=== PATIENT | female | born 1955 | race Caucasian/White ===

== ENCOUNTER 2016-12-01 23:16 | Emergency (ER) | payer BC ==
[~2016-12-01] VITALS: Ht 165.1 cm; Wt 95.3 kg
[2016-12-01 23:20] VITALS: BP 155/73
[2016-12-01] MEDS ORDERED: NAPROXEN 500 MG TABLET PO ONE (23:45)
[2016-12-01] MEDS ORDERED: HYDROCODONE/APAP 5/325MG TABLET. PO ONE (23:45)
[2016-12-02] MEDS ORDERED: HYDR-971 PO (00:41)
--- NOTE | 2016-12-02 00:41 | PHYS DOC ---
Past Medical History Past Medical History: Hypertension Past Surgical History: Hysterectomy, Other Additional Past Surgical Histo: bilater foot Alcohol Use: Rarely Drug Use: None Adult General Chief Complaint Chief Complaint: ANKLE PROBLEM HPI HPI Patient is a 61 year old female who presents with moderate right foot and left ankle pain that began after tripping over her cat falling down one step. Patient denies any loss of consciousness. Review of Systems Review of Systems Constitutional: Denies fever or chills [] Musculoskeletal: Right foot and left ankle pain Integument: Denies rash or skin lesions [] Neurologic: Denies headache, focal weakness or sensory changes [] Endocrine: Denies polyuria or polydipsia [] Current Medications Current Medications Current Medications Medications (Trade) Dose Ordered Sig/Stacie Start Time Stop Time Status Last Admin Dose Admin Acetaminophen/ Hydrocodone Bitart (Lortab 5/325) 2 tab 1X ONCE 12/01/16 23:45 12/01/16 23:46 DC 12/02/16 00:00 2 TAB Naproxen (Naprosyn) 500 mg ONCE ONCE 12/01/16 23:45 12/01/16 23:46 DC 12/01/16 23:59 500 MG Allergies Allergies Allergies Coded Allergies Type Severity Reaction Last Updated Verified No Known Drug Allergies 12/01/16 No Physical Exam Physical Exam Constitutional: Well developed, well nourished, no acute distress, non-toxic appearance. [] HENT: Normocephalic, atraumatic, bilateral external ears normal, oropharynx moist, no oral exudates, nose normal. [] Skin: Warm, dry, no erythema, no rash. [] Back: No tenderness, no CVA tenderness. [] Extremities: Left ankle with moderate soft tissue swelling and ecchymosis. Moderate tenderness on palpation of the left lateral ankle. Limited range of motion to the left ankle due to pain. Full range of motion to the left toes. +2 left pedal pulse. Cap refill less than 2 seconds the left toes. Right foot with no obvious deformity. Tenderness on palpation of the right lateral foot. Full range of motion to the right foot. +2 right pedal pulse. Cap refill less than 2 seconds the right lower extremity. Sensation intact to the right lower extremity. Neurologic: Alert and oriented X 3, normal motor function, normal sensory function, no focal deficits noted. [] Psychologic: Affect normal, judgement normal, mood normal. [] Current Patient Data Vital Signs Vital Signs Date Time Temp Pulse Resp B/P Pulse Ox O2 Delivery O2 Flow Rate FiO2 12/02/16 00:00 18 12/01/16 23:20 98.4 98 95 Room Air 98.4 EKG EKG [] Radiology/Procedures Radiology/Procedures [] Course & Med Decision Making Course & Med Decision Making Pertinent Labs and Imaging studies reviewed. (See chart for details) Patient is in the ED with right foot and left ankle pain after falling. Right foot x-ray interpreted by Dr. Corey is positive for fifth metatarsal fracture. Left ankle x-ray interpreted by Dr. Corey is positive for distal fibula fracture. Patient was placed in an orthopedic shoe on the right foot and stirrup splint on the left ankle by the ED RN. Neurovascular exam done by me is normal, cap refill less than 2 seconds bilaterally. Patient was offered admission, she declined. Instructed her to call the orthopedic doctor tomorrow morning and follow-up. Give her prescription for crutches and wheelchair. Dragon Disclaimer Dragon Disclaimer This electronic medical record was generated, in whole or in part, using a voice recognition dictation system. Departure Departure Impression: Primary Impression: Left fibular fracture Additional Impressions: Nondisplaced fracture of fifth right metatarsal bone Fall down steps Disposition: 01 HOME, SELF-CARE Condition: STABLE Referrals: CORY FAJARDO MD (PCP) ADAN RIZZO MD Follow-up with the orthopedic doctor by calling her office first thing tomorrow morning. Patient Instructions: Ankle Fracture, Foot Fracture-Brief Additional Instructions: You were seen for left ankle fracture and right foot fracture. Please call the orthopedic doctor provided first thing tomorrow morning and get a follow-up appointment. Ice and elevate the affected extremities. Do not put weight on either extremity. Scripts Hydrocodone/Apap 5-325 ([place] 5-325 Tablet)1 Each Tablet1-2 Tab PO Q4-6HRS #30 TAB Prov:EDUAR KULKARNI WENCESLAO 12/02/16 Problem Qualifiers Primary Impression: Left fibular fracture Encounter type: initial encounter Fibula location: distal Fracture type: closed Fracture morphology: unspecified fracture morphology Qualified Code: S82.832A - Other fracture of upper and lower end of left fibula, initial encounter for closed fracture Additional Impressions: Nondisplaced fracture of fifth right metatarsal bone Encounter type: initial encounter Fracture type: closed Qualified Code: S92.354A - Nondisplaced fracture of fifth metatarsal bone, right foot, initial encounter for closed fracture Fall down steps Encounter type: initial encounter Qualified Code: W10.8XXA - Fall (on) (from ) other stairs and steps, initial encounter EDUAR KULKARNI APRN Dec 02, 2016 00:41
--- NOTE | 2016-12-02 07:31 | RAD ---
EXAM: 1. Left ankle 3 views. 2. Right foot 3 views. HISTORY: Fall with left ankle and right foot pain. COMPARISON: None. FINDINGS: At the left ankle, there is an oblique fracture of the distal fibular metaphysis. There is one shaft width lateral displacement of the distal fracture fragment. There is a small avulsion fracture at the tip of the medial malleolus. A posterior malleolar fracture is associated with 5 mm proximal displacement and intra-articular surface incongruity. There is mild lateral subluxation and medial tilt of the talus. There is diffuse soft tissue swelling. The talar dome appears intact. There is a moderate plantar calcaneal spur. At the right foot, there is oblique fracture of the fifth metatarsal distally with slight medial displacement. Other joint spaces and alignment are maintained. IMPRESSION: 1. Left posterior malleolar fracture resulting in 5 mm articular surface and agree. 2. Left distal fibular metaphyseal oblique fracture with lateral displacement. 3. Small ligamentous avulsion of the tip of the medial malleolus. 4. Mild disruption of the left ankle mortise. 5. Oblique fracture of the right fifth metatarsal distal metaphysis.
[2016-12-06] MEDS ORDERED: DULO60CA6 PO (16:09)
[2016-12-06] MEDS ORDERED: METO25TA9 PO (16:09)
[2016-12-06] MEDS ORDERED: NORT25CA PO (16:10)
[2016-12-06] MEDS ORDERED: ASPI-482 PO (16:10)
[2016-12-06] MEDS ORDERED: DICL75TA PO (16:10)
== END 2016-12-02 01:10 | disposition home or self-care (01) ==
LOC: ER 23:16
DX: S82.832A Other fracture of upper and lower end of left fibula, initial encounter for closed fracture (principal); S92.354A Nondisplaced fracture of fifth metatarsal bone, right foot, initial encounter for closed fracture; I10 Essential (primary) hypertension; W01.0XXA Fall on same level from slipping, tripping and stumbling without subsequent striking against object, initial encounter; Y93.89 Activity, other specified; Y92.89 Other specified places as the place of occurrence of the external cause; Y99.2 Volunteer activity
CPT/HCPCS: 29515; 73610; 73630; 99284-25

== ENCOUNTER → 2016-12-03 | Outpatient (CLI) | payer BC ==
[2016-12-01 23:20] VITALS: BP 155/73
[~2016-12-03] MED LIST: ASPI-482 PO; DICL75TA PO; DULO60CA6 PO; HYDR-971 PO; METO25TA9 PO; NORT25CA PO
--- NOTE | 2016-12-03 14:54 | RAD ---
EXAM: CT left ankle without contrast. HISTORY: Left ankle fracture. TECHNIQUE: CT of the left ankle was performed without intravenous contrast. COMPARISON: None. FINDINGS: There is an oblique fracture of the lateral malleolus intersect in the mortise 1 cm proximal to the tibial plafond. There is 2 cortical widths lateral displacement of the distal fracture fragment. There is a fracture of the posterior malleolus with proximal migration of the posterior fragment x 3 mm resulting in 3 mm articular surface incongruity. There are small comminuted fragments interposed along the most medial aspect of the fracture line. The fragments measure up to 4 mm. There is a small avulsion fracture at the tip of the medial malleolus. The alignment of the mortise is maintained. There is a small defect along the medial corner of the talar dome measuring <3 mm with a tiny adjacent displaced fragment. There is a small plantar calcaneal spur. There is a joint effusion containing a few additional tiny osseous fragments. Soft tissue swelling is noted. IMPRESSION: 1. Comminuted fracture of the posterior malleolus with 3 mm proximal displacement resulting in articular surface incongruity. Small comminuted fragments interposed along the medial aspect of this fracture line result in an articular surface gap. 2. Mildly laterally displaced oblique fracture of the lateral malleolus. 3. Small avulsion fracture at the tip of the medial malleolus. 4. 3 mm osteochondral lesion along the medial corner of the talar dome with small adjacent displaced fragments. One or more of the following individualized dose reduction techniques were utilized for this examination: 1. Automated exposure control. 2. Adjustment of the mA and/or kV according to patient size. 3. Use of iterative reconstruction technique.
== END | disposition home or self-care (01) ==
LOC: CT 09:24
PROVIDERS: ATTEND Orthopaedic Surgery Sports Medicine
DX: S82.891A Other fracture of right lower leg, initial encounter for closed fracture (principal); X58.XXXA Exposure to other specified factors, initial encounter; Y93.89 Activity, other specified; Y92.89 Other specified places as the place of occurrence of the external cause; Y99.8 Other external cause status
CPT/HCPCS: 73700

== ENCOUNTER 2016-12-08 07:57 | Day surgery (SDC) | payer BC ==
[~2016-12-08] VITALS: Ht 165.1 cm; Wt 95.3 kg
[~2016-12-08 07:57] MED LIST changes: +CEFAZOLIN 1GM IVPB FOR OMNI 50 ML IV PRN; +FENTANYL PF 100 MCG/2 ML VIAL. IV PRN; +HYDROMORPHONE 2 MG/ML VIAL. IV PRN; +IV RINGERS,LACTATED 1000ML 1,000 ML IV SCH; +LIDOCAINE 1% 1 ML SYRINGE. ID PRN; +ONDANSETRON PF 4 MG/2 ML VIAL. IV PRN; +PROCHLORPERAZINE 10 MG/2 ML VIAL. IV PRN
[2016-12-08] MEDS ORDERED: BUPIVACAINE MPF 0.5% 30 ML VIAL. ONE (08:12)
[2016-12-08] MEDS ORDERED: LIDOCAINE 1% PF 30 ML VIAL. ONE (08:12)
[2016-12-08] MEDS ORDERED: MIDAZOLAM HCL 2 MG/2 ML VIAL. ONE (08:46)
[2016-12-08] MEDS ORDERED: DEXAMETHASONE SOD PHOS 20 MG/5 ML VIAL. ONE (08:47)
[2016-12-08] MEDS ORDERED: FENTANYL PF 250 MCG/5 ML VIAL. ONE (08:47)
[2016-12-08] MEDS ORDERED: PROPOFOL 20 ML IV ONE (08:47)
[2016-12-08] MEDS ORDERED: LIDOCAINE 2% 100 MG/5 ML DISP.SYRIN. ONE ×2 (08:47)
[2016-12-08] MEDS ORDERED: ONDANSETRON PF 4 MG/2 ML VIAL. ONE (08:47)
--- NOTE | 2016-12-08 09:07 | DISCH ---
DISCHARGE INSTRUCTIONS Condition on Discharge Condition on Discharge: Stable Activity After Discharge Activity Instructions for Disc: Other, see below Bathing Instructions: Shower-keep dressing dry Weight Bearing Status after Di: Non weight bearing Diet after Discharge Diet after Discharge: Regular Wound Incision Care Wound/Incision Care: Ice to area for comfort, Keep wound/cast CDI, Keep wound elevated, Do not change dressing Contacting the DRColten after DC Call your doctor for: Concerns you may have Follow-Up Follow up with: Ivy in 2 wks JANN HUERTAS II, MD Dec 08, 2016 09:07
--- NOTE | 2016-12-08 09:08 | PDOC ---
BRIEF OPERATIVE NOTE Date: Dec 08, 2016 Pre-Op Diagnosis closed L ankle fracture Post-Op Diagnosis same Procedure Performed ORIF L ankle, placement of syndesmotic screw Surgeon Ivy Silviculturist Kalie Anesthesiologist Therese Anesthesia Type: General, Local Blood Loss 50mL Findings medial widening with ER stress test Complications none JANN HUERTAS II, MD Dec 08, 2016 09:08
[2016-12-08] MEDS ORDERED: SEVOFLURANE 61 TO 120 MINUTES. IH ONE (10:23)
[2016-12-08] MEDS: FENTANYL PF 100 MCG/2 ML VIAL. IV PRN ×2 (10:57→11:10)
[2016-12-08] MEDS ORDERED: HYDROCODONE/APAP 10/325 TABLET. PO PRN ×2 (11:00)
[2016-12-08] MEDS: MORPHINE SULFATE 2 MG/ML DISP.SYRIN. IV PRN ×2 (11:03→11:20)
[2016-12-08 12:21] VITALS: BP 155/88
--- NOTE | 2016-12-08 16:09 | OP ---
DATE OF SURGERY: 12/08/2016 SURGEON: Duglas Huertas MD [employer] ENGINEER: Diana Jade. ANESTHESIA: General plus local. COMPLICATIONS: None. TOURNIQUET TIME: 65 minutes. ESTIMATED BLOOD LOSS: 50 mL. COMPONENTS INSERTED: [employer] distal fibula locking plate with a 3.5 mm single syndesmotic screw. REASON FOR PROCEDURE: The patient is a very pleasant 61-year-old female who lost her footing and tripped while at home and suffered a closed left distal fibula fracture with posterior malleolar involvement as well. INDICATIONS: I had a discussion of risks, benefits, and alternatives given her medial widening and fracture to proceeding with the above surgery, and she elected to proceed. I did also obtain a preoperative CAT scan for planning and to assess the posterior malleolar piece. DESCRIPTION OF PROCEDURE: The patient was greeted in the preoperative area by myself. Correct extremity was marked and verified. She was taken to the operative suite, and antibiotics were started en route. Once in the OR, she was transferred gently supine to the OR table. She had successful induction of general anesthesia. All pressure points were padded. She was secured to the bed. After we placed a large bump under her left hip, we then placed a nonsterile tourniquet to her left thigh and proceeded to prep and drape the left lower extremity in our usual sterile fashion which includes a chlorhexidine pre-scrub. After this, we conducted a standard preoperative timeout, and then I exsanguinated the extremity with an Esmarch, and tourniquet was insufflated to 250 mmHg. I then palpated and marked her distal fibular surface anatomy and made a straight skin incision laterally over this. I dissected subcutaneous tissue with electrocautery and Metzenbaum and noted a large amount of hematoma as well as soft tissue stripping at her anterior distal fibula. I was able to explore and evacuate hematoma digitally. I identified the fracture site and used a combination of a small rongeur, dental pick, curette, and metal tip sucker to debride the fracture site to expose the bony ends fully. After this, I performed a reduction and noted that when I inverted her ankle, the distal fibula fracture peacefully, did not move at all. I then used a combination of dental pick and sequential vplrx-lw-dalhw reduction maneuvers to becerra in the fracture fragment better. Her bone was quite soft, and I had difficulty securing the ojxfb-jq-mpknsq well and easily perforated the cortex. I opted not to place a leg screw through this fracture because the anterior portion of the cortical bone was quite narrow, and I did not think it would accommodate even a 2.7 screw. With the reduction accomplished and verified under biplanar fluoroscopy, I then sized the plate. I then placed the plate against bone and ensured that my reduction did not shift and then secured the plate above and below the fracture site with nonlocking screws and then filled with locking screws distal to the fracture site. I then placed nonlocking screws proximal to the fracture site as well to fill the holes. After this, I then brought in C-arm and performed an external rotation stress test and noted increased medial clear space widening with this. Therefore, I made a stab incision over medial malleolus region, bluntly dissected with hemostat down to the distal tibia and used a large periarticular reduction clamp from the plate to the medial distal tibia to reduce the syndesmosis. With the clamp in place, I repeated the external rotation stress test and noted no increase in medial clear space widening. Therefore, I placed a single 3.5 mm screw across four cortices. Then, I released the reduction forceps. I then took my final images and was happy with the fracture reduction and hardware position. I did inspect the posterior malleolus piece and felt that its size did not warrant fixation. After this, I thoroughly irrigated out the operative field and proceeded to close the deep layers with combination of simple and vjkonl-zg-ygubq 0 Vicryl. Inverted interrupted 2-0 was used for subcutaneous tissue and 2-0 nylon in mattress was used for the skin including the medial stab incision. We then cleansed and dried the leg, placed sterile dressing and a well-padded AO splint. After this, tourniquet was let down. The patient tolerated surgery well. No complications. Prior to completion of wound closure, all counts were reported correct x 2. At the conclusion of surgery, she was awakened and transferred gently supine to the recovery room cart and taken to PACU in stable and extubated condition. Postop plan is to discharge her home. She will be nonweightbearing. I will see her back in 2 weeks, sooner should problems arise. DUGLAS HUERTAS MD DR: Leann JOB#: [id number] / [id number]
== END 2016-12-08 12:28 | disposition home or self-care (01) ==
LOC: SURG 07:57 → MERGE 12:00 → SURG 12:28
PROVIDERS: ATTEND Orthopaedic Surgery Sports Medicine
DX: S82.832A Other fracture of upper and lower end of left fibula, initial encounter for closed fracture (principal); M19.90 Unspecified osteoarthritis, unspecified site; I10 Essential (primary) hypertension; K21.9 Gastro-esophageal reflux disease without esophagitis; X58.XXXA Exposure to other specified factors, initial encounter; Y93.89 Activity, other specified; Y92.009 Unspecified place in unspecified non-institutional (private) residence as the place of occurrence of the external cause; Y99.9 Unspecified external cause status; Z90.710 Acquired absence of both cervix and uterus; Z90.49 Acquired absence of other specified parts of digestive tract
CPT/HCPCS: 27792; 76000; A4215; C1713; J0690; J1100; J1170; J2250; J2270; J2405; J2704; J3010; J3490; J7120

== ENCOUNTER → 2017-03-04 | Day surgery (SDC) | payer BC ==
[~2017-03-04] MED LIST changes: -CEFAZOLIN 1GM IVPB FOR OMNI 50 ML IV PRN; -FENTANYL PF 100 MCG/2 ML VIAL. IV PRN; -HYDROMORPHONE 2 MG/ML VIAL. IV PRN; -LIDOCAINE 1% 1 ML SYRINGE. ID PRN; +LIDOCAINE 2% PF Vial for OR 5 ML VIAL. ONE; -ONDANSETRON PF 4 MG/2 ML VIAL. IV PRN; -PROCHLORPERAZINE 10 MG/2 ML VIAL. IV PRN; +PROPOFOL 20 ML IV ONE
[2017-03-04 13:28] VITALS: BP 126/86
== END | disposition home or self-care (01) ==
LOC: ENDOS 10:52
PROVIDERS: ATTEND Surgery
DX: Z12.11 Encounter for screening for malignant neoplasm of colon (principal); K21.9 Gastro-esophageal reflux disease without esophagitis; E66.9 Obesity, unspecified; I10 Essential (primary) hypertension; M19.90 Unspecified osteoarthritis, unspecified site; Z90.710 Acquired absence of both cervix and uterus; Z87.39 Personal history of other diseases of the musculoskeletal system and connective tissue
CPT/HCPCS: 45378; J2704

== ENCOUNTER 2017-03-30 08:57 | Day surgery (SDC) | payer BC ==
[~2017-03-30 08:57] MED LIST changes: +BUPIVAC MPF-EPI 0.5%-1:200000 30 ML VIAL. ONE; +BUPIVACAINE MPF 0.5% 30 ML VIAL. ONE; +HYDROmorphone 2 MG/ML VIAL IV PRN; +LIDOCAINE 1% 1 ML SYRINGE. ID PRN; +LIDOCAINE 1% PF 30 ML VIAL. ONE; -LIDOCAINE 2% PF Vial for OR 5 ML VIAL. ONE; +MORPHINE SULFATE 2 MG/ML DISP.SYRIN. IV PRN; +ONDANSETRON PF 4 MG/2 ML VIAL. IV PRN; +PROCHLORPERAZINE 10 MG/2 ML VIAL. IV PRN; -PROPOFOL 20 ML IV ONE; +fentaNYL PF VIAL 100 MCG/2 ML VIAL IV PRN
--- NOTE | 2017-03-30 09:30 | DISCH ---
DISCHARGE INSTRUCTIONS Condition on Discharge Condition on Discharge: Stable Activity After Discharge Activity Instructions for Disc: Activity as tolerated Bathing Instructions: Shower-keep dressing dry Weight Bearing Status after Di: As tolerated Diet after Discharge Diet after Discharge: Regular Wound Incision Care Wound/Incision Care: Ice to area for comfort, Keep wound/cast CDI, Keep wound elevated, Change dressing Contacting the DRColten after DC Call your doctor for: Concerns you may have Follow-Up Follow up with: Ivy in 2wks Follow Up With: Higinio in 2 wks JANN HUERTAS II, MD Mar 30, 2017 09:30
--- NOTE | 2017-03-30 09:32 | PDOC ---
BRIEF OPERATIVE NOTE Date: Mar 30, 2017 Pre-Op Diagnosis Ankle syndesmotic injury and distal fibula fx Post-Op Diagnosis same Procedure Performed removal of syndesmotic screw Surgeon Ivy Anesthesia Type: General Complications none JANN HUERTAS II, MD Mar 30, 2017 09:32
[2017-03-30] MEDS ORDERED: MIDAZOLAM HCL/PF 2 MG/2 ML VIAL. ONE (09:34)
[2017-03-30] MEDS ORDERED: DESFLURANE 61 TO 120 MINUTES IH ONE (09:34)
[2017-03-30] MEDS ORDERED: ONDANSETRON PF 4 MG/2 ML VIAL. ONE (09:35)
[2017-03-30] MEDS ORDERED: LIDOCAINE 2% PF Vial for OR 5 ML VIAL. ONE (09:35)
[2017-03-30] MEDS ORDERED: fentaNYL PF VIAL 100 MCG/2 ML VIAL ONE (09:35)
[2017-03-30] MEDS ORDERED: PROPOFOL 20 ML IV ONE (09:35)
[2017-03-30] MEDS ORDERED: DEXAMETHASONE SOD PHOS 20 MG/5 ML VIAL. ONE (09:35)
--- NOTE | 2017-03-30 11:19 | PDOC ---
BRIEF OPERATIVE NOTE Pre-Op Diagnosis #[id number] right and left leg lesions excision of lesions linda chambers gen ebl 10 ivf 850 [facility] CONRAD Whitfield MD Mar 30, 2017 11:19
[2017-03-30] MEDS ORDERED: OXYC-323 PO (11:46)
[2017-03-30 12:14] VITALS: BP 156/72
--- NOTE | 2017-03-30 14:43 | OP ---
DATE OF SURGERY: 03/30/2017 PREOPERATIVE DIAGNOSES: 1. Right leg lesion. 2. Left leg lesion. POSTOPERATIVE DIAGNOSES: 1. Right leg lesion. 2. Left leg lesion. PROCEDURE: 1. Excision of 1 cm right leg subcutaneous nodule. 2. Excision of 1 cm left leg skin lesion. 3. Layered wound closure, left leg. SURGEON: Conrad Salcedo M.D. ANESTHESIA: General. ESTIMATED BLOOD LOSS: 10 mL. IV FLUIDS: 850 mL. INDICATIONS: The patient is a 61-year-old female who presented with the above-described leg lesion that she would like to have removed. DESCRIPTION OF PROCEDURE: After informed consent was obtained, the patient was taken to the operating room and placed in supine position. After adequate induction of general anesthesia, she was prepped and draped in usual sterile fashion. A skin incision was made over the right leg lesion with a scalpel and the subcutaneous tissue divided sharply. The lesion was delivered into the field with gentle pressure, which measured 1 cm. It appeared to have a yellowish brownish hue, possibly consistent with an old hematoma. The wound had some bleeding that was controlled with 3-0 Vicryl suture. The wound was then closed in layers with the deep layer approximated with 3-0 Vicryl. Skin was closed with 4-0 Monocryl in subcuticular fashion. Local was injected. Pressure was held and the area was hemostatic. The left leg lesion was then addressed and then an elliptical incision was made around the left leg skin lesion and extended into the subcutaneous fat with cautery. The skin lesion was excised with a short stitch distally and a long stitch proximal. The wound was then closed in layers. There was hemostatic. The deep layer was closed with 3-0 Vicryl in interrupted fashion and then the skin was closed with a 4-0 Prolene in a simple running fashion. Local was injected. Sterile dressings were placed. She tolerated procedure well. There were no apparent complications. She remained in the operating room under a general anesthetic where Dr. Haynes was to begin his portion of her surgery. CONRAD SALCEDO MD DR: JONAS/tammy JOB#: [id number] / [id number] CORY Calhoun MD MTDD
--- NOTE | 2017-03-30 15:39 | OP ---
DATE OF SURGERY: 03/30/2017 PREOPERATIVE DIAGNOSIS: Left ankle syndesmotic injury with hardware and distal fibular fracture. POSTOPERATIVE DIAGNOSIS: Left ankle syndesmotic injury with hardware and distal fibular fracture. PROCEDURE PERFORMED: Removal of syndesmotic screw. COMPLICATIONS: None. REASON FOR PROCEDURE: The patient is a very pleasant 61-year-old who underwent ORIF of left ankle fracture dislocation and syndesmotic injury with myself several weeks ago. For full details, please see my outpatient notes. We had a discussion of risks, benefits, alternatives to proceeding with screw removal today. The surgery was done in conjunction with Dr. Hooker's excision of 2 lower extremity leg masses. For details, please see her documentation. DESCRIPTION OF PROCEDURE: I greeted the patient in the preoperative area before she was taken back to the operative suite and marked my surgical site. The patient was then taken back to the operative suite and Dr. Hooker performed her portion of the procedure. Please see her documentation for that. After she had finished, I entered the room, and the patient was already prepped and draped and under general anesthesia. I brought in C-arm to localize the syndesmotic screw and then made approximately a 1.5 cm incision through her prior incision and used a hemostat to dissect down to the level of the plate bluntly. I then used a [place] elevator to remove adherent fibrotic tissue over the screw head. I used C-arm to make sure I was removing the correct screw and then used a screwdriver to remove the screw without complication. I took an image to confirm this. I then performed an external rotation stress test, which demonstrated no talar shift or widening of her syndesmosis. I then irrigated out the small stab incision and then closed the skin with simple interrupted 2-0 nylon in a mattress fashion. The area was then cleansed and dried and sterile dressing was applied followed by cast padding and Geraldo wrap. She was then awakened from anesthesia. She tolerated the procedures well. There were no complications. Blood loss for my portion was 5 mL. At the conclusion of surgery, she was awakened and extubated and transferred gently supine to the recovery room cart and taken to PACU in stable and extubated condition. From my standpoint, she can weightbear as tolerated. I will see her back in 2 weeks, sooner should problems arise. JANN HUERTAS MD DR: BASILIO/tammy JOB#: [id number] / [id number]
--- NOTE | 2017-04-01 18:43 | PATHOLOGY ---
PATHOLOGY REPORT * * * * * * * * FINAL DIAGNOSIS: A. Skin, right leg lesion: - Dermatofibroma hemosiderotic variant. - There is no evidence of malignancy. - See comment. B. Skin, left leg lesion: - Lichenoid keratosis. - There is no evidence of malignancy. - See comment. COMMENT: A and B. This case is also reviewed by the dermatopathologist, Dr. Daniela Silva. (SHA:[facility]; d/t: 04/01/2017) REPORT ELECTRONICALLY SIGNED BY: Gamaliel Mares M.D. DATE/TIME: 04/01/2017 18:42 * * * * * * * * GROSS PATHOLOGY: A. The specimen is received in formalin labeled "Augie James right leg lesion". Received is a segment of friable red-brown possible soft tissue measuring 1.1 x 0.9 x 0.7 cm in greatest dimensions. The surgical margin is not discernible grossly. The specimen is submitted entirely in cassette A1. B. Received in formalin labeled "Augie James left leg lesion," is a 1.6 x 1.2 x 0.3 cm ellipse of skin oriented with a short suture placed at one tip designating this as the distal aspect, which will further be designated as the 6:00 margin, and a long suture placed at the opposite tip designating this as the proximal margin, which will further be designated as the 12:00 margin. The specimen is inked as follows: 12 to 3:00-yellow, 3 to 6:00-blue and 6 to 12:00-black. The epidermal surface displays a well-circumscribed, irregular in contour, partially crusted and pale layne to light layne lesion which measures 0.6 x 0.5 cm. The specimen is sectioned into six pieces and entirely submitted in cassettes B1 and B2, with the 12 and 6:00 aspects placed in cassette B2. ([facility]; 03/31/2017) INITIAL CPT CODE(S): A; 37074 B; 73846 Professional services performed by [facility] at [address] [address] Technical services performed by [facility] at [address] [place] [address], [address], [place] [address]. SPECIMEN(S) RECEIVED: A.Right leg lesion B.Left leg lesion CLINICAL HISTORY: Bilateral leg lesions PATIENT: AUGIE JAMES /AGE: 1210/02/1955 (Age: 61) PATIENT #: [id number] ALT CASE #: SPECIMEN COLLECTION DATE: 03/30/2017 SPECIMEN RECEIVED DATE: 03/30/2017 [facility] - [address] [place] [address] - PHONE: [phone] * * * END OF REPORT * * *
== END 2017-03-30 13:12 | disposition home or self-care (01) ==
LOC: SURG 08:57
PROVIDERS: ATTEND Orthopaedic Surgery Sports Medicine
DX: D23.71 Other benign neoplasm of skin of right lower limb, including hip (principal); L57.0 Actinic keratosis; Z47.2 Encounter for removal of internal fixation device; I10 Essential (primary) hypertension; E66.9 Obesity, unspecified; Z68.43 Body mass index [BMI] 50.0-59.9, adult; K21.9 Gastro-esophageal reflux disease without esophagitis; M19.90 Unspecified osteoarthritis, unspecified site; Z90.710 Acquired absence of both cervix and uterus; Z87.39 Personal history of other diseases of the musculoskeletal system and connective tissue
CPT/HCPCS: 11401; 11402; 12032; 20680; 76000; 88305; A4215; J0690; J1100; J2250; J2405; J2704; J3010; J3490

== ENCOUNTER → 2019-12-06 | Outpatient (CLI) | payer SELFPAY ==
[~2019-12-06] MED LIST changes: -BUPIVAC MPF-EPI 0.5%-1:200000 30 ML VIAL. ONE; -BUPIVACAINE MPF 0.5% 30 ML VIAL. ONE; +HYDR-3164 PO; -HYDR-971 PO; -HYDROmorphone 2 MG/ML VIAL IV PRN; -IV RINGERS,LACTATED 1000ML 1,000 ML IV SCH; -LIDOCAINE 1% 1 ML SYRINGE. ID PRN; -LIDOCAINE 1% PF 30 ML VIAL. ONE; +METO-239 PO; -METO25TA9 PO; -MORPHINE SULFATE 2 MG/ML DISP.SYRIN. IV PRN; -ONDANSETRON PF 4 MG/2 ML VIAL. IV PRN; +OXYC1TAB15 PO; -PROCHLORPERAZINE 10 MG/2 ML VIAL. IV PRN; -fentaNYL PF VIAL 100 MCG/2 ML VIAL IV PRN
--- NOTE | 2019-12-06 10:33 | KCIC ---
PROCEDURE: HIP BILATERAL WITH PELVIS STUDY DATE: 12/06/2019 CLINICAL INDICATION / HISTORY: Bilateral hip pain since July after trauma, right greater than left.. TECHNIQUE: Three views of the pelvis and bilateral hips are obtained including an AP view supine of the pelvis, and supine frog-leg lateral views of the right hip, 10 of the left hip. COMPARISON: None FINDINGS: Pelvic ring is intact. Mild generalized demineralization. Medial joint space narrowing is present bilaterally, greater on the left with more conspicuous osteophytic spurring around the left femoral head. No fracture or aggressive appearing osseous lesion is seen. Soft tissues show rounded calcifications in the pelvis compatible with phleboliths. Otherwise no radiographic abnormality noted. IMPRESSION: Bilateral hip degenerative changes, worse on the left than on the right. No fracture or aggressive osseous lesions seen. If indicated, additional imaging by MRI could be pursued for further evaluation. Electronically signed by: Gigi Munoz MD (12/06/2019 10:30 AM) [facility]
== END | disposition home or self-care (01) ==
LOC: KCIC 08:21
PROVIDERS: ATTEND Family Medicine
DX: M16.0 Bilateral primary osteoarthritis of hip (principal); I87.8 Other specified disorders of veins
CPT/HCPCS: 73521

== ENCOUNTER → 2020-03-17 | Outpatient (CLI) | payer OTHER ==
[~2020-03-17] MED LIST changes: +BUPIVACAINE MPF 0.5% 10 ML VIAL for KCIC. IJ ONE; +IOHEXOL 300 MG/ML 50 ML VIAL. INT ART ONE; +LIDOCAINE 1% Multi-Dose 20 ML VIAL. ID ONE; +methylPREDNISolone ACETATE 40 MG/ML VIAL. INT ART ONE
--- NOTE | 2020-03-17 17:08 | KCIC ---
PROCEDURE Therapeutic right and left hip injection using fluoroscopic guidance. HISTORY Bilateral hip pain. TECHNIQUE The procedure was explained to the patient as were potential risks, including infection, bleeding or allergic reaction. All questions were answered. Informed written and verbal consent was obtained. The right hip was prepped and draped in the usual sterile manner. Following administration of local anesthetic, a 22-gauge spinal needle was advanced into the hip joint without difficulty, with care taken to avoid the vascular structures. Stylet was removed and following negative aspiration, a mixture of 4 cc Omnipaque-300, 2 cc (80 mg) Depo-Medrol, 4 cc 0.5% bupivacaine and 4 cc 1% lidocaine were injected without difficulty. Fluoroscopy demonstrates uniform and satisfactory distribution of the injection through the hip. The needle was removed. There was good hemostasis at the injection site. The left hip was prepped and draped in the usual sterile manner. Following administration of local anesthetic, a 22-gauge spinal needle was advanced into the hip joint without difficulty, with care taken to avoid the vascular structures. Stylet was removed and following negative aspiration, a mixture of 4 cc Omnipaque-300, 2 cc (80 mg) Depo-Medrol, 4 cc 0.5% bupivacaine and 4 cc 1% lidocaine were injected without difficulty. Fluoroscopy demonstrates uniform and satisfactory distribution of the injection through the hip. The needle was removed. There was good hemostasis at the injection site. The patient left in stable condition without immediate complication. The patient was given postprocedural instructions, instructed to contact us or the emergency room if there are any complications. 2 spot images were obtained. FLUOROSCOPY TIME: 39 seconds Electronically signed by: Anmol Coy MD (03/17/2020 5:05 PM) [id number]
== END ==
LOC: KCIC 13:53
PROVIDERS: ATTEND Orthopaedic Surgery Sports Medicine
DX: M25.551 Pain in right hip (principal); M25.552 Pain in left hip
CPT/HCPCS: 20610; 77002; J1030; J3490; Q9967

== ENCOUNTER → 2020-11-06 | Outpatient (CLI) | payer OTHER ==
[~2020-11-06] MED LIST changes: -BUPIVACAINE MPF 0.5% 10 ML VIAL for KCIC. IJ ONE; -IOHEXOL 300 MG/ML 50 ML VIAL. INT ART ONE; -LIDOCAINE 1% Multi-Dose 20 ML VIAL. ID ONE; -methylPREDNISolone ACETATE 40 MG/ML VIAL. INT ART ONE
--- NOTE | 2020-11-06 08:33 | KCIC ---
Lumbar spine 3 views. HISTORY: Lumbago was sciatica left, M 56.42 3 views were taken of the lumbar spine. There are calcifications possibly phleboliths along the spine on each side. There is moderate stool in the colon. There is minimal scoliosis convex to the right. There is slight spondylolisthesis with at L4-5. There is mild lower lumbar facet arthritis. There is no acute fracture. IMPRESSION: 1. Mild degenerative facet arthritis in the lower lumbar spine. 2. Slight spondylolisthesis L4-5. Electronically signed by: Rashaun Dc MD (11/06/2020 8:31 AM) [id number]
== END ==
LOC: KCIC 08:06
PROVIDERS: ATTEND Nurse Practitioner Gerontology
DX: M47.816 Spondylosis without myelopathy or radiculopathy, lumbar region (principal); M43.16 Spondylolisthesis, lumbar region
CPT/HCPCS: 72100